=== PATIENT | male | born 1980 | race Caucasian/White ===

== ENCOUNTER 2017-04-16 05:08 | Day surgery (SDC) | payer OTHER ==
[~2017-04-16] VITALS: Ht 162.6 cm; Wt 89.8 kg
[2017-04-16] MEDS ORDERED: LIDOCAINE 2% 1000 MG/50 ML VIAL INJ ONE (07:28)
== END 2017-04-16 09:40 | disposition home or self-care (01) ==
LOC: MDS 05:08 → MMU 06:05 → MDS 09:40
PROVIDERS: ATTEND Internal Medicine Gastroenterology
DX: B19.20 Unspecified viral hepatitis C without hepatic coma (principal); M19.90 Unspecified osteoarthritis, unspecified site; E66.9 Obesity, unspecified; Z87.891 Personal history of nicotine dependence; Z72.89 Other problems related to lifestyle; Z79.899 Other long term (current) drug therapy; Z98.890 Other specified postprocedural states
CPT/HCPCS: 47000; 76942; J2001; Q0092